=== PATIENT | male | born 1970 | race Caucasian/White ===

== ENCOUNTER 2016-12-03 22:47 | Emergency (ER) | payer SELFPAY ==
[2016-12-03 23:00] VITALS: BP 223/126
[2016-12-03] MEDS ORDERED: Ondansetron 4 MG/2 ML SDV IV ONE (23:20)
[2016-12-03] MEDS ORDERED: Clindamycin Phosphate 900 MG in Sodium Chloride 0.9% 100 ML IV ONE (23:20)
[2016-12-03] MEDS ORDERED: Morphine 2 MG/ML Syringe IVPUSH ONE (23:20)
[2016-12-03] MEDS ORDERED: Sodium Chloride 0.9% 1,000 ML IV ONE (23:21)
--- NOTE | 2016-12-03 23:27 | EDM.PDOC ---
ED HPI GENERAL MEDICAL PROBLEM - General Chief Complaint: ENT Problem Stated Complaint: ABCESS TOOTH, HEAD/FACE PAIN [id number] Time Seen by Provider: 12/03/16 23:23 Source of Information: Reports: Patient History Limitations: Reports: No Limitations - History of Present Illness INITIAL COMMENTS - FREE TEXT/NARRATIVE: been to DDS told has abscess Tx with amox with return next week for root canal. but not getting better tonight worse with facial swelling. Left Tooth/Teeth Pain Score (Numeric/FACES): 10 - Related Data Allergies Allergy/AdvReac Type Severity Reaction Status Date / Time No Known Allergies Allergy Verified 12/03/16 22:53 Home Meds: Home Meds Amoxicillin 500 mg PO TID 12/03/16 [History] Past Medical History HEENT History: Reports: Other (See Below) Other HEENT History: dental abscess Cardiovascular History: Reports: High Cholesterol, Hypertension - Infectious Disease History Infectious Disease History: Reports: Chicken Pox Social & Family History - Tobacco Use Smoking Status *Q: Current Every Day Smoker Years of Tobacco use: 20 Packs/Tins Daily: 1.5 Second Hand Smoke Exposure: Yes - Alcohol Use Days Per Week of Alcohol Use: 7 Number of Drinks Per Day: 8 Total Drinks Per Week: 56 - Recreational Drug Use Recreational Drug Use: No ED ROS ENT - Review of Systems Review Of Systems: ROS reveals no pertinent complaints other than HPI. ED EXAM, ENT - Physical Exam Exam: See Below Exam Limited By: No Limitations General Appearance: Alert, WD/WN, Mild Distress, Moderate Distress Ears: Hearing Grossly Normal Mouth/Throat: Dental Abcess, Dental Pain, Dental Tenderness, Other (left facial swelling) Head: Atraumatic Neck: Non-Tender, Full Range of Motion Respiratory/Chest: No Respiratory Distress Cardiovascular: Regular Rate, Rhythm GI/Abdominal: Soft, Non-Tender Neurological: Alert, Oriented, Normal Cognition, Normal Gait, Slow to Respond Psychiatric: Flat Affect, Tearful Skin: Warm, Dry, Normal Color Lymphatic: No Adenopathy Course - Vital Signs Last Recorded V/S: Last Vital Signs Temp 36.4 C 12/03/16 22:58 Pulse 89 12/03/16 22:58 Resp 20 12/03/16 22:58 BP 223/126 H 12/03/16 22:58 Pulse Ox 95 12/03/16 22:58 - Orders/Labs/Meds Meds: Medications Discontinued Medications Generic Name Dose Route Start Last Admin Trade Name Mitchell PRN Reason Stop Dose Admin Clindamycin Phosphate 900 mg/ 106 mls @ 200 mls/hr 12/03/16 23:20 12/03/16 23 :32 Sodium Chloride IV 12/03/16 23:51 200 mls/hr ONETIME ONE Administration Sodium Chloride 1,000 mls @ 999 mls/hr 12/03/16 23:21 12/03/16 23:34 Normal Saline IV 12/04/16 00:21 999 mls/hr .BOLUS ONE Administration Morphine Sulfate 2 mg 12/03/16 23:20 12/03/16 23:33 Morphine IVPUSH 12/03/16 23:21 2 mg ONETIME ONE Administration Ondansetron HCl 4 mg 12/03/16 23:20 12/03/16 23:33 Zofran IV 12/03/16 23:21 4 mg ONETIME ONE Administration - Re-Assessments/Exams Free Text/Narrative Re-Assessment/Exam: 12/04/16 00:32 re-exam; s/p IV Rx = much better Departure - Departure Time of Disposition: 00:32 Disposition: Home, Self-Care 01 Condition: Good Clinical Impression: Dental abscess - Discharge Information Instructions: Dental Abscess, [id number] Forms: ED Department Discharge Additional Instructions: 1) avoid solid foods next few days 2) see Dentist 3) recheck as needed 4) monitor BP rx given; clindamycin 150mg qid x 40 vicodin 5/325mg tid prn x 12
== END 2016-12-04 00:38 | disposition home or self-care (01) ==
LOC: DL.ED 22:47
DX: K04.7 Periapical abscess without sinus (principal); F17.210 Nicotine dependence, cigarettes, uncomplicated; I10 Essential (primary) hypertension; E78.00 Pure hypercholesterolemia, unspecified
CPT/HCPCS: 96361; 96365; 96375; 99283; J2270; J2405; J7030; J7050; S0077

== ENCOUNTER 2024-11-13 07:36 | Day surgery (SDC) | payer BC ==
[~2024-11-13 07:36] MED LIST: Propofol 200 MG/20 ML SDV ONE
[2024-11-13] MEDS ORDERED: Lactated Ringers 1,000 ML IV ONE (07:37)
[2024-11-13] MEDS ORDERED: Propofol 200 MG/20 ML SDV IV ONE (07:37)
[2024-11-13] MEDS: Lactated Ringers 1,000 ML IV SCH (08:00)
[2024-11-13 09:04] VITALS: PULSE 83
[2024-11-13 09:23] VITALS: BP 126/84
== END 2024-11-13 09:39 | disposition home or self-care (01) ==
LOC: DL.ENDO 07:36
PROVIDERS: ATTEND Internal Medicine Gastroenterology
DX: K76.6 Portal hypertension (principal); K31.89 Other diseases of stomach and duodenum; I85.00 Esophageal varices without bleeding; K70.9 Alcoholic liver disease, unspecified; I25.10 Atherosclerotic heart disease of native coronary artery without angina pectoris; E78.00 Pure hypercholesterolemia, unspecified; I10 Essential (primary) hypertension; Z95.1 Presence of aortocoronary bypass graft
CPT/HCPCS: 43239; 93005; J2003; J2704; J7120

== ENCOUNTER 2024-11-24 06:09 | Day surgery (SDC) | payer BC ==
[2024-11-24] MEDS ORDERED: Lactated Ringers 1,000 ML IV ONE (06:10)
[2024-11-24] MEDS ORDERED: Sodium Chloride 0.9% 10 ML Syringe IV ONE (06:10)
[2024-11-24] MEDS ORDERED: Propofol 200 MG/20 ML SDV IV ONE (06:10)
[2024-11-24] MEDS: Lactated Ringers 1,000 ML IV SCH (06:39)
[2024-11-24] MEDS ORDERED: Propofol 200 MG/20 ML SDV ONE (08:37)
[2024-11-24 09:00] VITALS: BP 134/84; PULSE 78
== END 2024-11-24 08:40 | disposition home or self-care (01) ==
LOC: DL.ENDO 06:09
PROVIDERS: ATTEND Internal Medicine Gastroenterology
DX: Z12.11 Encounter for screening for malignant neoplasm of colon (principal); K63.5 Polyp of colon; K57.30 Diverticulosis of large intestine without perforation or abscess without bleeding; I10 Essential (primary) hypertension; I25.10 Atherosclerotic heart disease of native coronary artery without angina pectoris; E78.00 Pure hypercholesterolemia, unspecified; E66.89 Other obesity not elsewhere classified; Z68.27 Body mass index [BMI] 27.0-27.9, adult; Z79.899 Other long term (current) drug therapy
CPT/HCPCS: 00811; 45385; J2704; J7120